=== PATIENT | female | born 1950 | race Caucasian/White ===

== ENCOUNTER 2021-05-03 01:39 | Emergency (ER) | payer MEDICARE, OTHER ==
[2021-05-03 02:11] LABS: CHLORIDE,CL 103 mEq/L (98-106); SODIUM,NA 143 mEq/L (136-145)
--- NOTE | 2021-05-03 02:13 | EDM.PDOC ---
ED HPI GENERAL MEDICAL PROBLEM - General Chief Complaint: General Stated Complaint: unresponsive Time Seen by Provider: 05/03/21 01:39 Source of Information: Reports: Patient, EMS, Family History Limitations: Reports: Altered Mental Status - History of Present Illness INITIAL COMMENTS - FREE TEXT/NARRATIVE: Misty is a 70 year old female who presents to ER per EMS after found semi- conscious on her floor at home. Significant other relates that he was out with friends and when he arrived at home, found her lying on the floor in the position. She was seen earlier today for s/p fall 24 hours prior and on Eliquis for atrial fib. [place] had [place] boat, slipped on the dock and fell on her side. Hit her chin and head on the dock. She had a CT scan done earlier that was negative. Was fine upon returning home, talking per her norm. Ate supper. Significant states he left the house around 8 pm and returned at 1220. Patient does arouse to command. Denies a headache. Admits to being tired. Speech is difficult to understand. Initially denied any alcohol use but after further questioning due to noted alcohol on her breath, did admit to "drinking 2 small bottles". Has not drank much in the last 2 years. Also now admits to taking a sleeping pill. Onset: Sudden Duration: Hour(s):, Getting Worse Location: Reports: Head Associated Symptoms: Reports: Confusion, Syncope. Denies: Chest Pain, Cough, Fever/Chills, Headaches, Loss of Appetite, Nausea/Vomiting, Shortness of Breath - Related Data Allergies Allergy/AdvReac Type Severity Reaction Status Date / Time No Known Allergies Allergy Verified 05/03/21 02:03 Home Meds: Home Meds Apixaban [Eliquis] 5 mg PO DAILY 05/03/21 [History] Digoxin 125 mcg PO DAILY 05/03/21 [History] Doxepin HCl [Doxepin] 25 mg PO DAILY 05/03/21 [History] Metoprolol Succinate 1 tab PO DAILY 05/03/21 [History] Rosuvastatin Calcium 1 tab PO DAILY 05/03/21 [History] buPROPion HCL [Bupropion HCl ER] 300 mg PO DAILY 05/03/21 [History] lisinopriL [Lisinopril] 1 tab PO DAILY 05/03/21 [History] Past Medical History Cardiovascular History: Reports: Afib, High Cholesterol, Hypertension Social & Family History - Tobacco Use Tobacco Use Status *Q: Former Tobacco User - Alcohol Use Alcohol Use History: Yes ED ROS GENERAL - Review of Systems Review Of Systems: See Below Constitutional: Reports: Malaise, Weakness, Fatigue. Denies: Fever, Chills HEENT: Denies: Ear Pain, Sinus Problem, Throat Pain, Vision Change Respiratory: Denies: Shortness of Breath, Cough Cardiovascular: Denies: Chest Pain, Edema, Lightheadedness Endocrine: Reports: Fatigue GI/Abdominal: Denies: Abdominal Pain, Nausea, Vomiting : Reports: No Symptoms Musculoskeletal: Reports: No Symptoms Skin: Reports: No Symptoms Neurological: Reports: Confusion, Syncope, Trouble Speaking, Weakness Psychiatric: Reports: No Symptoms ED EXAM, GENERAL - Physical Exam Exam: See Below Exam Limited By: Altered Mental Status General Appearance: No Apparent Distress, Lethargic Eye Exam: Bilateral Eye: EOMI, PERRL (right pupil is sluggish from previous cataract surgery) Ears: Normal External Exam, Normal TMs Nose: Normal Inspection, Normal Mucosa, No Blood Throat/Mouth: Normal Inspection, Normal Oropharynx Head: Atraumatic, Normocephalic Neck: Normal Inspection, Supple, Non-Tender Respiratory/Chest: No Respiratory Distress, Lungs Clear, Normal Breath Sounds Cardiovascular: Irregularly Irregular GI/Abdominal: Normal Bowel Sounds, Soft, Non-Tender Extremities: Normal Inspection, Normal Range of Motion, No Pedal Edema Neurological: CN II-XII Intact, Slow to Respond, Other (patient is slow to respond, lethargic but does follow all commands. Neuro exam normal except speech difficult to understand, slurred. ) Skin Exam: Warm, Dry Course - Vital Signs Last Recorded V/S: Last Vital Signs Temp 97.6 F 05/03/21 01:39 Pulse 88 05/03/21 01:39 Resp 16 05/03/21 01:39 BP 127/73 05/03/21 01:39 Pulse Ox 95 05/03/21 01:39 - Orders/Labs/Meds Orders: Active Orders 24 hr Category Date Time Status Head wo Cont [CT] Stat Exams 05/03/21 01:45 Taken Sodium Chloride 0.9% [Normal Saline] 1,000 ml Med 05/03/21 02:15 Active IV ASDIRECTED Medication Orders Sodium Chloride (Normal Saline) 1,000 mls @ 250 mls/hr IV ASDIRECTED [facility]I Last Admin: 05/03/21 02:19 Dose: 250 mls/hr Documented by: KOBE Labs: Laboratory Tests 05/03/21 05/03/21 05/03/21 Range/Units 01:45 01:45 01:45 WBC (5.0-10.0) 10^3/uL RBC (4.00-5.50) 10^6/uL Hgb (12.0-16.0) g/dL Hct (37.0-47.0) % MCV (82.0-94.0) fL MCH (27.0-32.0) pg MCHC (33.0-38.0) g/dL RDW Coeff of Little (11.0-15.0) % Plt Count (150-400) 10^3/uL Neut % (Auto) (35-85) % Lymph % (Auto) (10-55) % [place] % (Auto) (0-16) % Eos % (Auto) (0-5) % Baso % (Auto) (0-3) % Neut # (Auto) (1.80-7.00) 10^3/uL Lymph # (Auto) (1.00-4.80) 10^3/uL [place] # (Auto) (0.00-0.80) 10^3/uL Eos # (Auto) (0.00-0.45) 10^3/uL Baso # (Auto) 10^3/uL PT 10.8 (9.7-12.3) SEC INR 0.99 (0.92-1.18) APTT 24.8 (23.2-32.3) SEC Sodium 143 (136-145) mEq/L Potassium 3.3 L (3.5-5.0) mEq/L Chloride 103 (98-106) mEq/L Carbon Dioxide 28 (21-32) mmol/L BUN 16 (7-18) mg/dL Creatinine 1.3 H (0.6-1.0) mg/dL Est Cr Clr Drug Dosing 30.94 mL/min Estimated GFR (MDRD) 40 L (>=60) mL/min Glucose 93 (75-99) mg/dL Lactic Acid 2.5 H (0.4-2.0) mmol/L Calcium 8.0 L (8.4-10.1) mg/dL Total Bilirubin 0.3 (0.0-1.0) mg/dL AST 57 H (15-37) U/L ALT 43 (12-78) U/L Alkaline Phosphatase 73 (46-116) U/L Lactate Dehydrogenase 271 H (100-190) U/L Creatine Kinase 218 H (21-215) U/L Troponin I < 0.017 (0.00-0.06) ng/mL C-Reactive Protein < 0.2 L (0.2-0.8) mg/dL Total Protein 7.5 (6.4-8.2) g/dL Albumin 3.5 (3.4-5.0) g/dL Urine Color (YELLOW) Urine Appearance (CLEAR) Urine pH (4.5-8.0) Ur Specific [place] (1.003-1.020) Urine Protein (NEGATIVE) mg/dL Urine Glucose (UA) (NEGATIVE) mg/dL Urine Ketones (NEGATIVE) mg/dL Urine Occult Blood (NEGATIVE) Urine Nitrite (NEGATIVE) Urine Bilirubin (NEGATIVE) Urine Urobilinogen (0.2-1.0) EU/dL Ur Leukocyte Esterase (NEGATIVE) Urine RBC (0-5) /HPF Urine WBC (0-5) /HPF Ur Epithelial Cells (NOT SEEN) /HPF Urine Opiates Screen (NEGATIVE) Ur Oxycodone Screen (NEGATIVE) Urine Methadone Screen (NEGATIVE) Ur Barbiturates Screen (NEGATIVE) U Tricyclic Antidepress (NEGATIVE) Ur Phencyclidine Scrn (NEGATIVE) Ur Amphetamine Screen (NEGATIVE) U Methamphetamines Scrn (NEGATIVE) Urine MDMA Screen (NEGATIVE) U Benzodiazepines Scrn (NEGATIVE) Urine Cocaine Screen (NEGATIVE) U Marijuana (THC) Screen (NEGATIVE) Ethyl Alcohol 274 H (0-3) mg/dL 05/03/21 05/03/21 05/03/21 Range/Units 02:25 02:25 13:45 WBC 6.3 (5.0-10.0) 10^3/uL RBC 4.38 (4.00-5.50) 10^6/uL Hgb 13.1 (12.0-16.0) g/dL Hct 39.1 (37.0-47.0) % MCV 89.3 (82.0-94.0) fL MCH 29.9 (27.0-32.0) pg MCHC 33.5 (33.0-38.0) g/dL RDW Coeff of Little 13.7 (11.0-15.0) % Plt Count 204 (150-400) 10^3/uL Neut % (Auto) 48.1 (35-85) % Lymph % (Auto) 38.8 (10-55) % [place] % (Auto) 10.0 (0-16) % Eos % (Auto) 2.6 (0-5) % Baso % (Auto) 0.5 (0-3) % Neut # (Auto) 3.02 (1.80-7.00) 10^3/uL Lymph # (Auto) 2.43 (1.00-4.80) 10^3/uL [place] # (Auto) 0.63 (0.00-0.80) 10^3/uL Eos # (Auto) 0.16 (0.00-0.45) 10^3/uL Baso # (Auto) 0.03 10^3/uL PT (9.7-12.3) SEC INR (0.92-1.18) APTT (23.2-32.3) SEC Sodium (136-145) mEq/L Potassium (3.5-5.0) mEq/L Chloride (98-106) mEq/L Carbon Dioxide (21-32) mmol/L BUN (7-18) mg/dL Creatinine (0.6-1.0) mg/dL Est Cr Clr Drug Dosing mL/min Estimated GFR (MDRD) (>=60) mL/min Glucose (75-99) mg/dL Lactic Acid (0.4-2.0) mmol/L Calcium (8.4-10.1) mg/dL Total Bilirubin (0.0-1.0) mg/dL AST (15-37) U/L ALT (12-78) U/L Alkaline Phosphatase (46-116) U/L Lactate Dehydrogenase (100-190) U/L Creatine Kinase (21-215) U/L Troponin I (0.00-0.06) ng/mL C-Reactive Protein (0.2-0.8) mg/dL Total Protein (6.4-8.2) g/dL Albumin (3.4-5.0) g/dL Urine Color Light yellow (YELLOW) Urine Appearance Clear (CLEAR) Urine pH 5.5 (4.5-8.0) Ur Specific [place] 1.020 (1.003-1.020) Urine Protein Negative (NEGATIVE) mg/dL Urine Glucose (UA) Negative (NEGATIVE) mg/dL Urine Ketones Negative (NEGATIVE) mg/dL Urine Occult Blood Small H (NEGATIVE) Urine Nitrite Negative (NEGATIVE) Urine Bilirubin Negative (NEGATIVE) Urine Urobilinogen 0.2 (0.2-1.0) EU/dL Ur Leukocyte Esterase Negative (NEGATIVE) Urine RBC 5-10 H (0-5) /HPF Urine WBC Not seen (0-5) /HPF Ur Epithelial Cells Occasional H (NOT SEEN) /HPF Urine Opiates Screen Negative (NEGATIVE) Ur Oxycodone Screen Negative (NEGATIVE) Urine Methadone Screen Negative (NEGATIVE) Ur Barbiturates Screen Negative (NEGATIVE) U Tricyclic Antidepress Positive H (NEGATIVE) Ur Phencyclidine Scrn Negative (NEGATIVE) Ur Amphetamine Screen Negative (NEGATIVE) U Methamphetamines Scrn Negative (NEGATIVE) Urine MDMA Screen Negative (NEGATIVE) U Benzodiazepines Scrn Negative (NEGATIVE) Urine Cocaine Screen Negative (NEGATIVE) U Marijuana (THC) Screen Negative (NEGATIVE) Ethyl Alcohol (0-3) mg/dL Meds: Medications Generic Name Dose Route Start Last Admin Trade Name Freq PRN Reason Stop Dose Admin Sodium Chloride 1,000 mls @ 250 mls/hr 05/03/21 02:15 05/03/21 02:19 Normal Saline IV 250 mls/hr ASDIRECTED [facility] Administration - Re-Assessments/Exams Free Text/Narrative Re-Assessment/Exam: 05/03/21 02:18 CBC unremarkable. Potassium 3.3. CK and LDH elevated, troponin negative. lactic acid 2.5. Blood alcohol 274. Significant other informed. IV fluids started. 05/03/21 02:42 UA negative. Drug screen positive for tricyclics only. 05/03/21 04:14 Patient resting comfortably. IV fluids infusing. Does arouse to stimuli. Will discharge home after IV fluids infused. Departure - Departure Time of Disposition: 04:15 Disposition: Home, Self-Care 01 Condition: Fair Clinical Impression: Alcohol intoxication - Discharge Information *PRESCRIPTION DRUG MONITORING PROGRAM REVIEWED*: No *COPY OF PRESCRIPTION DRUG MONITORING REPORT IN PATIENT NALINI: No Instructions: Alcohol Intoxication, [id number] Forms: ED Department Discharge Additional Instructions: 1. Push fluids 2. Rest 3. Continue usual meds 4. Return if any changes in mentation, increased headache, neurological changes 5. Call with any questions or concerns. Sepsis Event Note (ED) - Evaluation Sepsis Screening Result: No Definite Risk - Focused Exam Vital Signs: Vital Signs Temp Pulse Resp BP Pulse Ox 05/03/21 01:39 97.6 F 88 16 127/73 95 - My Orders Last 24 Hours: My Active Orders 05/03/21 01:45 Head wo Cont [CT] Stat 05/03/21 02:15 Sodium Chloride 0.9% [Normal Saline] 1,000 ml IV ASDIRECTED - Assessment/Plan Last 24 Hours: My Active Orders 05/03/21 01:45 Head wo Cont [CT] Stat 05/03/21 02:15 Sodium Chloride 0.9% [Normal Saline] 1,000 ml IV ASDIRECTED
[2021-05-03] MEDS ORDERED: Sodium Chloride 0.9% 1,000 ML IV SCH (02:15)
[2021-05-03 02:24] LABS: PTT,PARTIAL THROMBOPLSTIN TIME 24.8 SEC (23.2-32.3)
== END 2021-05-03 06:45 | disposition home or self-care (01) ==
LOC: CC.ED 01:39
DX: F10.129 Alcohol abuse with intoxication, unspecified (principal); I48.91 Unspecified atrial fibrillation; E78.00 Pure hypercholesterolemia, unspecified; I10 Essential (primary) hypertension; Z87.891 Personal history of nicotine dependence; Y90.8 Blood alcohol level of 240 mg/100 ml or more; Z79.899 Other long term (current) drug therapy
CPT/HCPCS: 36415; 70450; 80053; 80305-QW; 80307; 81001; 82550; 83605; 83615; 84484; 85025; 85610; 85730; 86140; 93005; 93010; 99284; 99285-25; J7030